=== PATIENT | female | born 1980 | race Caucasian/White ===

== ENCOUNTER 2021-02-12 09:26 | Emergency (ER) | payer BC ==
[~2021-02-12] VITALS: Ht 170.2 cm; Wt 83.9 kg
[2021-02-12] MEDS ORDERED: LIDOCAINE HCL 2% 30 ML TUBE TOP ONE (10:00)
== END 2021-02-12 11:04 | disposition home or self-care (01) ==
LOC: ER 09:30
DX: K62.89 Other specified diseases of anus and rectum (principal); K64.9 Unspecified hemorrhoids
CPT/HCPCS: 99283